=== PATIENT | female | born 1940 | race Caucasian/White ===

== ENCOUNTER 2017-12-08 20:17 | Emergency (ER) | payer MEDICARE ==
[~2017-12-08] VITALS: Ht 152.4 cm; Wt 73.9 kg
[2017-12-08] MEDS ORDERED: ACETAMINOPHEN 325 MG TAB PO ONE (21:00)
[2017-12-08] MEDS ORDERED: MORPHINE SULFATE 5 MG/ML VIAL IM ONE (22:30)
[2017-12-08] MEDS ORDERED: LORAZEPAM 1 MG TAB PO ONE (22:30)
[2017-12-08] MEDS ORDERED: ULTRAM50 MG PO (22:31)
[2017-12-08] MEDS ORDERED: GABAPENTIN300 MG PO (22:31)
[2017-12-08 22:41] VITALS: BP 155/74
== END 2017-12-08 22:43 | disposition home or self-care (01) ==
LOC: FSED 20:17
DX: M54.42 Lumbago with sciatica, left side (principal); I10 Essential (primary) hypertension; E11.9 Type 2 diabetes mellitus without complications; I51.9 Heart disease, unspecified; Z85.038 Personal history of other malignant neoplasm of large intestine
CPT/HCPCS: 96372; 99282; J2270